=== PATIENT | female | born 1935 | race Caucasian/White ===

== ENCOUNTER 2017-07-30 11:50 | Inpatient (IN) ==
[2017-07-25 16:46] LABS: Appearance,Urine CLEAR; Bacteria,Urine 0 /hpf (0); Bilirubin,Urine NEG (NEG); Color,Urine YELLOW; Glucose,Urine (UA) NEGATIVE (NEG); Leukocyte Esterase,Urine 500 /uL (NEG); Mucus,Urine FEW /hpf (0); Protein,Urine NEG (NEG); Specific Gravity,Urine 1.013 (1.000-1.035); Urine Blood NEG mg/dL (<0.03); Urine Hyaline Cast 1 /lpf (0-2); Urine RBC < 1 /hpf (0-1); Urine Squamous Epithelial Cell < 1 /hpf (0-4); Urine Transitional Epi Cells < 1 /hpf (0-2); Urine WBC 41 /hpf (0-4); Urobilinogen,Urine NEG (NEG)
[2017-07-25 17:30] LABS: Basophils # (Auto) 0.1 K/mcL (0.0-0.3); Eosinophils # (Auto) 0.8 K/mcL (0.0-0.7); Eosinophils % (Auto) 8.3 % (0.0-7.0); Granulocytes % (Auto) 56.3 % (38.0-78.0); Lymphocytes # (Auto) 2.3 K/mcL (1.5-4.8); Lymphocytes % (Auto) 22.8 % (15.5-49.0); Mean Cell Volume 84.6 fL (80.0-100.0); Mean Corpuscular HGB Conc 33.9 g/dL (31.0-36.0); Mean Corpuscular Hemoglobin 28.7 pg (26.0-34.0); Monocytes # (Auto) 1.2 K/mcL (0.1-0.9); Monocytes % (Auto) 11.6 % (1.0-12.0); Platelet Count 520 K/mcL (140-440); RBC 4.26 M/mcL (4.00-5.20)
[2017-07-25 17:48] LABS: Blood Urea Nitrogen 29 mg/dl (8-23)
[~2017-07-30 11:50] MED LIST: PREGABALIN 75 MG CAPSULE PO SCH; ceFAZolin 1 GM VIAL IV SCH; oxyCODONE 10 MG TAB.ER.12H PO SCH
[2017-07-30] MEDS ORDERED: SUCCINYLCHOLINE 20 MG/ML ML IV ONE (15:10)
[2017-07-30] MEDS ORDERED: PHENYLEPHRINE 10 MG/ML VIAL IV ONE (15:10)
[2017-07-30] MEDS ORDERED: TRANEXAMIC ACID 1,000 MG/10 ML VIAL IV ONE ×2 (15:10→16:39)
[2017-07-30] MEDS ORDERED: ONDANSETRON 4 MG/2 ML VIAL IV ONE (15:10)
[2017-07-30] MEDS ORDERED: LIDOCAINE HCL/PF 100 MG/5 ML SYRINGE IV ONE (15:10)
[2017-07-30] MEDS ORDERED: PROPOFOL 200 MG/20 ML VIAL IV ONE (15:10)
[2017-07-30] MEDS ORDERED: HYDROmorphone 2 MG/ML VIAL IV ONE (15:10)
[2017-07-30] MEDS ORDERED: fentaNYL 250 MCG/5 ML VIAL IV ONE (15:10)
[2017-07-30] MEDS ORDERED: DEXAMETHASONE 10 MG/ML VIAL IV ONE (15:10)
[2017-07-30] MEDS ORDERED: ePHEDrine 50 MG/ML AMPUL IV ONE (15:10)
[2017-07-30] MEDS ORDERED: MIDAZOLAM 2 MG/2 ML VIAL IV ONE (15:10)
[2017-07-30] MEDS ORDERED: LACTATED RINGERS 1,000 ML IV SCH (15:45)
[2017-07-30] MEDS ORDERED: METHOCARBAMOL 1,000 MG/10 ML VIAL IV PRN (15:45)
[2017-07-30] MEDS ORDERED: IPRATROPIUM/ALBUTEROL 3 ML AMPUL.NEB NEB PRN (15:45)
[2017-07-30] MEDS ORDERED: NALOXONE HCL 0.4 MG/ML VIAL IV PRN (15:45)
[2017-07-30] MEDS ORDERED: fentaNYL 100 MCG/2 ML VIAL IV PRN (15:45)
[2017-07-30] MEDS ORDERED: FLUMAZENIL 0.1 MG/ML ML IV PRN (15:45)
[2017-07-30] MEDS ORDERED: ACETAMINOPHEN 1,000 MG/100 ML BOTTLE IV ONE (15:45)
[2017-07-30] MEDS ORDERED: LACTATED RINGERS 250 ML IV PRN (15:45)
[2017-07-30] MEDS ORDERED: BENZOCAINE/MENTHOL 1 LOZENGE PO PRN ×2 (15:45→16:39)
[2017-07-30] MEDS ORDERED: ONDANSETRON 4 MG/2 ML VIAL IV PRN ×2 (15:45→16:39)
--- NOTE | 2017-07-30 16:36 | Brief Operative Note ---
Date of procedure: 07/30/17 Pre-op diagnosis: R shoulder massive rotator cuff tear with instability Post-op diagnosis: same Procedure: Right reverse total shoulder arthroplasty Grafts/Implants: Yes (Juan Perform 36 glenosphere, 6 long stem, std poly) Anesthesia: GETA Findings: absent RTC Complications: none Surgeon: Gigi Kirk Pin Ticket Machine Operator: Hugo Jaimes Estimated blood loss (cc): 100 Specimens Removed/Pathology: none sent Condition: stable Disposition: PACU
[2017-07-30] MEDS ORDERED: MAGNESIUM HYDROXIDE 30 ML ORAL.SUSP PO PRN (16:39)
[2017-07-30] MEDS ORDERED: BISACODYL 10 MG SUPP.RECT PR PRN (16:39)
[2017-07-30] MEDS ORDERED: FLEETS ADULT ENEMA PR PRN (16:39)
[2017-07-30] MEDS ORDERED: POLYETHYLENE GLYCOL 3350 17 GM PACKET PO PRN (16:39)
[2017-07-30] MEDS ORDERED: KETOROLAC 15 MG/ML VIAL IV PRN (16:39)
[2017-07-30] MEDS ORDERED: IBUPROFEN 200 MG TABLET PO PRN (16:39)
[2017-07-30] MEDS ORDERED: ACETAMINOPHEN 325 MG TABLET PO PRN (16:39)
[2017-07-30] MEDS ORDERED: FLUTICASONE PROPIONATE SPRAY.NAS NS PRN (16:43)
[2017-07-30] MEDS ORDERED: CYCLOBENZAPRINE 10 MG TABLET PO PRN (16:43)
[2017-07-30] MEDS ORDERED: HALOBETASOL PROPIONATE TOPICAL PRN (16:43)
[2017-07-30] MEDS ORDERED: hydrOXYzine 25 MG TABLET PO PRN (16:43)
[2017-07-30] MEDS ORDERED: BUPIVACAINE W/EPI 0.5% 50 ML VIAL IJ ONE (16:56)
--- NOTE | 2017-07-30 17:21 | XRay Report ---
CLINICAL INFORMATION: Reason for Exam:Post-OP Total Shoulder COMPARISON: None. FINDINGS: Total shoulder prostheses is anatomically aligned no osseous abnormality. Soft tissue swelling and gas seen as expected IMPRESSION: Negative Interpreted and Authenticated by: Cipriano López 07/30/17
[2017-07-30] MEDS: 0.9 % SODIUM CHLORIDE 1,000 ML IV SCH (18:25)
[2017-07-30] MEDS: DOCUSATE SODIUM 100 MG CAPSULE PO SCH (20:04)
[2017-07-30] MEDS: CALCIUM (OYSTER SHELL) 500 MG TABLET PO SCH (20:04)
[2017-07-30] MEDS ORDERED: SENNOSIDES 1 TABLET PO SCH (21:00)
[2017-07-30] MEDS: 0.9 % SODIUM CHLORIDE 10 ML SYRINGE IV SCH (22:54)
[2017-07-30] MEDS: ceFAZolin 1 GM VIAL IV SCH (22:54)
[2017-07-31] MEDS: oxyCODONE/APAP 5/325MG TABLET PO PRN ×3 (00:01→11:14)
[2017-07-31] MEDS: 0.9 % SODIUM CHLORIDE 10 ML SYRINGE IV SCH (04:52)
[2017-07-31] MEDS: ceFAZolin 1 GM VIAL IV SCH (06:54)
--- NOTE | 2017-07-31 07:46 | Discharge Summary ---
Providers - Providers Patient information: Note initiated : 07/31/17 at 7:42 am Service Date, if different from initiated Date: [] Patient: Itzel Rabago 82 y/o F admitted on 07/30/17 for Right Reverse Total Shoulder Arthroplasty. Chief Complaint: [] Discharge date: 07/31/17 Hospitalization Hospital course: Pt was admitted for R reverse total shoulder arthroplasty. She suffered from R shoulder rotator cuff arthropathy that failded conservative management. She underwent the procedure on the day of admission and spent one night on the floor prior to discharge. She was given appropriate pain meds and will f/u in 10 -14 days. Discharge diagnosis: R shoulder rotator cuff arthropathy Exam - Exam Clean and dry: Yes Weight bearing status: as tolerated Ortho Discharge - TSA - Patient Instructions Diet: Regular Diet Activity: activity as tolerated Total Shoulder Protocol: Leave immobilizer in place except for bathing and ROM. Abduction pillow. Continue to wear sling until seen by physician. Codman Pendulum : These exercises use momentum produced by your body to move your shoulder joint. Bend your knees and shift your weight to your front leg, then back, allowing your arm to swing in the same directions. Using the same technique, alternately shift your weight between your right and left legs, allowing your arm to swing from side to side. These exercises are also performed in counterclockwise and clockwise circular motions. Typically these exercises are performed several times per day, for a set number repetitions or minutes, such as 20 times in a row or 5 minutes at a time. Dressing Care: May shower in 2 days - Follow Up Plan Disposition: Home, Self-Care Prognosis: Good Rehab Potential: Good Overall status at discharge: patient is progressing back to baseline - Orders For Discharge Prescriptions: HYDROcodone/APAP 10/325MG [[place] 10-325Mg] 1 tab PO Q6H PRN #60 tab PRN Reason: Pain Pending Studies Resuscitation Status Full Code Diet Regular Diet Start SatJul 30 Breakfast Calcium Carbonate/Glycine (Oscal) 500 mg PO BID [facility] Last Admin: 07/30/17 20:04 Dose: 500 mg Docusate Sodium (Colace) 100 mg PO BID [facility] Last Admin: 07/30/17 20:04 Dose: 100 mg Sodium Chloride (Sodium Chloride 0.9%) 1,000 mls @ 75 mls/hr IV .[id number] [facility] Last Admin: 07/30/17 18:25 Dose: 75 mls/hr Ketorolac Tromethamine (Toradol) 15 mg IV Q6HP PRN PRN Reason: Pain Stop: 08/01/17 16:41 Last Admin: 07/30/17 18:42 Dose: 15 mg Oxycodone/Acetaminophen (Percocet 5-325 Mg) 0 tab PO Q4HP PRN PRN Reason: PAIN LEVEL 3-6 Last Admin: 07/31/17 00:01 Dose: 1 tab Senna (Senokot) 2 tab PO HS [facility] Last Admin: 07/30/17 20:04 Dose: 2 tab Sodium Chloride (Saline Flush) 10 ml IV Q8 [facility] Last Admin: 07/31/17 04:52 Dose: Not Given Admin: 07/30/17 22:54 Dose: Not Given Shift Summary 07/31/17 04:09 Shift Summary by Jose E Arango VSS on 2L O2 via NC. A&Ox4. Shoulder immobilizer in place. Dressing to right shoulder CDI. Up to BSC x2 this shift. Last void was 650mL, PVR 0mL. Very unsteady on feet @ baseline. States she walks w/walker at home, fellow sisters stated she walks w/2 walking sticks but is very unsteady and requires assistance. Up to BSC w/1 person assist and cane. Initially pt was dizzy and nauseated upon getting oob, however the second time up to BSC she appeared to tolerate transferring better. N subsided after returning to bed. BLE pitting edema is WNL for patient. SCDs in place through night. IV to left FA running NS @ 75mL/hr, plan to SL when bag is empty. Uses IS up to 750. Pt has received Toradol x1 @ 1840 and 1 tab Percocet @ midnight. After percocet admin pt stated she had no pain. Very pleasant and cooperative w/cares. Initialized on 07/31/17 04:09 - END OF NOTE
--- NOTE | 2017-07-31 08:23 | Operative Note ---
DATE OF OPERATION: 07/30/2017 PREOPERATIVE DIAGNOSIS: Right shoulder massive irreparable rotator cuff tear with recurrent instability. POSTOPERATIVE DIAGNOSIS: Right shoulder massive irreparable rotator cuff tear with recurrent instability. PROCEDURE PERFORMED: Right reverse total shoulder arthroplasty using the Tornier Aequalis Perform implant, size 36 standard glenosphere with a size 6 long stem and a standard baseplate and polyethylene insert. SURGEON: Gigi Kirk M.D. LEATHER SPRAYER: Jesus Jaimes PA-C. ANESTHESIA: General. DRAINS: None. SPECIMENS: None. COMPLICATIONS: None. BLOOD LOSS: 100 mL. POSTOPERATIVE CONDITION: Stable. INDICATIONS FOR SURGERY: This is an 82-year-old female who had a longstanding shoulder weakness. However, she spontaneously dislocated two times in the last several months. FINDINGS AT SURGERY: She had complete absence of the rotator cuff. Post implantation showed satisfactory range of motion and stability. PROCEDURE IN DETAIL: Patient was seen in preoperative holding and correct operative site marked. She signed informed consent which included discussion of risks and benefits of surgery. Risks including, but not limited to, bleeding, possibly requiring transfusion; infection, possibly requiring implant removal and prolonged IV antibiotics; injury to nerves, blood vessels other surrounding structures; anesthetic risks; incomplete or no resolution of symptoms; dislocation; fracture; possibility of needing further revision surgery. She understood these and wished to proceed. Patient was taken to the operating room. General anesthesia induced. She was carefully positioned in the beach chair position and pressure points carefully padded. Right shoulder and upper extremity were then carefully prepped and draped in normal sterile fashion, and a time-out was performed verifying patient name, operative site, and plan. Ioban was used to cover all skin surfaces. A standard deltopectoral incision was made with a scalpel through skin and subcutaneous tissue. Hemostasis was obtained with Bovie cautery. Careful blunt dissection was taken medial to the cephalic vein and then blunt finger dissection used to develop the subdeltoid space. Irrisept was irrigated. There was a pseudocapsule around the humeral head that when punctured released a large amount of joint fluid. However, there was complete absence of the rotator cuff. The humeral head was dislocated out and we looked at her retroversion. She was extremely retroverted. However, I chose to go ahead and do an anatomic cut, so we went ahead and cut the humeral head anatomically. We then started broaching down the canal until a size 6. We then used the main broaches then to go up to a size 6. We then subluxed the humerus posteriorly and exposed the glenoid. Labrum remains were excised circumferentially and capsule released circumferentially. We then marked the center of the glenoid and then using the guide from Juan with the 10 degree tilt up drilled our guide pin. We then reamed, reaming into cancellous bone inferiorly and just contacting bone superiorly. We then drilled our central peg over top and then drilled our central screw hole. We depth gauged this I believe a 35. We then chose a 25 standard baseplate. After irrigating Irrisept and waiting minute and then pulse lavage, we then tightened the baseplate down. We then drilled and placed locking screws superior and inferiorly, and posteriorly the screw was too short, so we left this empty. Anteriorly we got a fairly good screw. We then placed a standard 36 glenosphere and a trial and then redislocated the head. We placed a standard baseplate with a standard poly trial. The shoulder reduced with good tension. We checked our range of motion. It did not appear unstable or to impinge, so we went ahead and dislocated. We then re-exposed the glenoid and removed the glenosphere trial. The definitive implant was opened. We irrigated with Irrisept again, after a minute pulse lavaged, and then we impacted the glenosphere and then tightened the screw. We then re-exposed the humerus. We removed the trial. We irrigated the humeral canal with Irrisept, after a minute pulse lavaged, and then the stem was impacted along with the baseplate and polyethylene, all in one construct. Shoulder was reduced again with excellent tension. Range of motion verified and then we irrigated again with Irrisept, after a minute pulse lavaged with saline, and then went ahead and closed our deltopectoral interval with a running #1 Vicryl, 2-0 Monocryl was used for subcutaneous and ronak for skin. Xeroform sterile dressings were applied. Arm was placed in an abductor immobilizer and patient was awakened, extubated, and transferred to recovery in stable condition. [email or web address] Job ID: [id number] Doc ID: [id number] Gigi Kirk MD
[2017-07-31] MEDS: 0.9 % SODIUM CHLORIDE 1,000 ML IV SCH (08:24)
[2017-07-31] MEDS: DOCUSATE SODIUM 100 MG CAPSULE PO SCH (08:58)
[2017-07-31] MEDS: CALCIUM (OYSTER SHELL) 500 MG TABLET PO SCH (08:58)
[2017-07-31] MEDS ORDERED: CYANOCOBALAMIN 1,000 MCG/ML VIAL IM SCH (09:00)
[2017-07-31] MEDS ORDERED: HYDROCHLOROTHIAZIDE 12.5 MG CAPSULE PO SCH (09:00)
[2017-07-31] MEDS ORDERED: LOSARTAN 50 MG TABLET PO SCH (09:00)
[2017-07-31] MEDS ORDERED: FUROSEMIDE 40 MG TABLET PO SCH (09:00)
[2017-07-31] MEDS ORDERED: LACTOBACILLUS 1 CAPSULE PO SCH (09:00)
[2017-07-31] MEDS ORDERED: MAGNESIUM OXIDE 400 MG TABLET PO SCH (09:00)
== END 2017-07-31 11:15 | disposition home or self-care (01) | DRG 483 ==
LOC: MEDSUR 11:50
PROVIDERS: ADMIT Orthopaedic Surgery; ATTEND Orthopaedic Surgery

== ENCOUNTER 2019-03-25 07:30 | Inpatient (IN) ==
[2019-03-19 13:53] LABS: Appearance,Urine CLEAR; Bacteria,Urine 0 /hpf (0); Bilirubin,Urine NEG (NEG); Color,Urine YELLOW; Culture Indicated,Urine NO; Glucose,Urine (UA) NEGATIVE (NEG); Ketones,Urine NEG (NEG); Leukocyte Esterase,Urine 25 /uL (NEG); Nitrate,Urine NEG (NEG); Protein,Urine NEG (NEG); Specific Gravity,Urine 1.012 (1.000-1.035); Urine Blood NEG mg/dL (<0.03); Urine RBC < 1 /hpf (0-1); Urine Squamous Epithelial Cell < 1 /hpf (0-4); Urine WBC 2 /hpf (0-4); Urobilinogen,Urine NEG (NEG)
[2019-03-19 14:10] LABS: Estimated Average Glucose(eAG) 117 mg/dL; Hemoglobin A1C 5.7 % HGB (4.0-6.0)
[2019-03-19 14:18] LABS: Blood Urea Nitrogen 32 mg/dl (8-23); Calcium 9.2 mg/dl (8.6-10.4); Carbon Dioxide 28 mmol/L (22-30); Chloride 94 mmol/L (96-108); Glomerular Filtration Rate 51; Glucose 96 mg/dL (70-105)
[2019-03-19 15:21] LABS: Basophils # (Auto) 0.1 K/mcL (0.0-0.3); Basophils % (Auto) 0.5 % (0.0-2.0); Eosinophils # (Auto) 0.2 K/mcL (0.0-0.7); Eosinophils % (Auto) 2.5 % (0.0-7.0); Granulocytes % (Auto) 62.1 % (38.0-78.0); Hematocrit 36.2 % (36.0-48.0); Lymphocytes # (Auto) 2.5 K/mcL (1.5-4.8); Lymphocytes % (Auto) 25.5 % (15.5-49.0); Mean Cell Volume 82.6 fL (80.0-100.0); Mean Corpuscular HGB Conc 33.2 g/dL (31.0-36.0); Mean Platelet Volume 7.6 fL (7.4-10.4); Monocytes # (Auto) 0.9 K/mcL (0.1-0.9); Monocytes % (Auto) 9.4 % (1.0-12.0); Platelet Count 551 K/mcL (140-440); RBC 4.38 M/mcL (4.00-5.20); Red Cell Distribution Width 21.5 % (11.5-14.5); WBC 9.9 K/mcL (4.5-11.0)
[~2019-03-25 07:30] MED LIST changes: +IPRATROPIUM/ALBUTEROL 3 ML AMPUL.NEB NEB PRN; +SCOPOLAMINE 1 PATCH PATCH TOPICAL PRN; -ceFAZolin 1 GM VIAL IV SCH; +ceFAZolin 2 GM in DEXTROSE 5% IN WATER 50 ML IV SCH
[2019-03-25] MEDS ORDERED: GLYCOPYRROLATE 0.2 MG/ML VIAL IV ONE (11:46)
[2019-03-25] MEDS ORDERED: MIDAZOLAM 2 MG/2 ML VIAL IV ONE (11:46)
[2019-03-25] MEDS ORDERED: ONDANSETRON 4 MG/2 ML VIAL IV ONE (11:46)
[2019-03-25] MEDS ORDERED: fentaNYL 100 MCG/2 ML VIAL IV ONE (11:46)
[2019-03-25] MEDS ORDERED: SUGAMMADEX SODIUM 200 MG/2 ML VIAL IV ONE (11:46)
[2019-03-25] MEDS ORDERED: ePHEDrine 50 MG/ML AMPUL IV ONE (11:46)
[2019-03-25] MEDS ORDERED: ROCURONIUM 10 MG/ML ML IV ONE (11:46)
[2019-03-25] MEDS ORDERED: PHENYLEPHRINE 10 MG/ML VIAL IV ONE (11:46)
[2019-03-25] MEDS ORDERED: KETAMINE 100 MG/ML ML IV ONE (11:46)
[2019-03-25] MEDS ORDERED: PROPOFOL 200 MG/20 ML VIAL IV ONE (11:46)
[2019-03-25] MEDS ORDERED: DEXAMETHASONE 10 MG/ML VIAL IV ONE (11:46)
[2019-03-25] MEDS ORDERED: LIDOCAINE HCL/PF 100 MG/5 ML SYRINGE IV ONE (11:46)
[2019-03-25] MEDS ORDERED: BUPIVACAINE W/EPI 0.5% 50 ML VIAL IJ ONE (12:42)
[2019-03-25] MEDS ORDERED: LACTATED RINGERS 250 ML IV PRN (13:10)
[2019-03-25] MEDS ORDERED: FLUMAZENIL 0.1 MG/ML ML IV PRN (13:10)
[2019-03-25] MEDS ORDERED: NALOXONE HCL 0.4 MG/ML VIAL IV PRN (13:10)
[2019-03-25] MEDS ORDERED: diphenhydrAMINE 50 MG/ML VIAL IV PRN (13:10)
[2019-03-25] MEDS ORDERED: ACETAMINOPHEN 1,000 MG/100 ML BOTTLE IV ONE (13:10)
[2019-03-25] MEDS ORDERED: IPRATROPIUM/ALBUTEROL 3 ML AMPUL.NEB NEB PRN (13:10)
[2019-03-25] MEDS ORDERED: ONDANSETRON 4 MG/2 ML VIAL IV PRN ×2 (13:10→13:21)
[2019-03-25] MEDS ORDERED: PROMETHAZINE 25 MG/ML VIAL IV PRN (13:10)
[2019-03-25] MEDS ORDERED: BENZOCAINE/MENTHOL 1 LOZENGE PO PRN ×2 (13:10→13:21)
[2019-03-25] MEDS ORDERED: MEPERIDINE 25 MG/ML SYRINGE IV PRN (13:10)
[2019-03-25] MEDS ORDERED: LACTATED RINGERS 1,000 ML IV SCH (13:15)
--- NOTE | 2019-03-25 13:20 | Brief Operative Note ---
Date of procedure: 03/25/19 Pre-op diagnosis: Left shoulder severe RTC tear arthropathy Post-op diagnosis: same Procedure: 1)Left reverse total shoulder arthroplasty 2)Biceps tenodesis Grafts/Implants: Yes (Tornier Aequalis Ascend flex 5 long stem, 36 +2 inferior offset glenosphere) Anesthesia: GETA Findings: severe osteoporosis, absent cuff Complications: none Surgeon: Gigi Kirk Railroad Car Painter: Hugo Jaimes Estimated blood loss (cc): 150 Specimens Removed/Pathology: none sent Condition: stable Disposition: PACU
[2019-03-25] MEDS ORDERED: MAGNESIUM HYDROXIDE 30 ML ORAL.SUSP PO PRN (13:21)
[2019-03-25] MEDS ORDERED: BISACODYL 10 MG SUPP.RECT PR PRN (13:21)
[2019-03-25] MEDS ORDERED: FLEETS ADULT ENEMA PR PRN (13:21)
[2019-03-25] MEDS ORDERED: TRANEXAMIC ACID 1,000 MG/10 ML VIAL IV ONE (13:21)
[2019-03-25] MEDS ORDERED: KETOROLAC 15 MG/ML VIAL IV PRN (13:21)
[2019-03-25] MEDS ORDERED: POLYETHYLENE GLYCOL 3350 17 GM PACKET PO PRN (13:21)
[2019-03-25] MEDS ORDERED: FLUTICASONE PROPIONATE SPRAY.NAS NS PRN (13:26)
[2019-03-25] MEDS ORDERED: HALOBETASOL PROPIONATE TOPICAL PRN (13:26)
[2019-03-25] MEDS ORDERED: CYCLOBENZAPRINE 10 MG TABLET PO PRN (13:26)
[2019-03-25] MEDS ORDERED: HYDROmorphone 2 MG/ML VIAL IV PRN (13:28)
[2019-03-25] MEDS: fentaNYL 100 MCG/2 ML VIAL IV PRN ×2 (14:02→14:10)
[2019-03-25] MEDS ORDERED: METHOCARBAMOL 1,000 MG/10 ML VIAL IV ONE (14:12)
--- NOTE | 2019-03-25 14:12 | XRay Report ---
CLINICAL INFORMATION: Postsurgical follow-up TECHNIQUE: AP and axillary views of the left shoulder COMPARISON: None. FINDINGS: Status post left reverse shoulder arthroplasty. Alignment is anatomic. There are skin ronak overlying the left shoulder. IMPRESSION: Left reverse shoulder arthroplasty Interpreted and Authenticated by: Cipriano Eric 03/25/19
[2019-03-25] MEDS: 0.9 % SODIUM CHLORIDE 10 ML SYRINGE IV SCH ×2 (14:29→22:21)
--- NOTE | 2019-03-25 14:40 | Operative Note ---
DATE OF OPERATION: 03/25/2019 PREOPERATIVE DIAGNOSIS: Left shoulder severe rotator cuff tear arthropathy. POSTOPERATIVE DIAGNOSIS: Left shoulder severe rotator cuff tear arthropathy plus severe osteoporosis. PROCEDURE PERFORMED: 1. Left reverse total shoulder arthroplasty placing a Tornier Aequalis Ascend Flex size 5 long humeral stem, a standard thickness baseplate with a +9 mm insert on a 25 mm standard baseplate and a 36 eccentric 2 mm glenosphere. 2. Biceps tenodesis. SURGEON: Gigi Kirk MD CORRECTIONAL MANAGER: Jesus Jaimes PA-C. This provider's expertise and technical skill were required throughout the case. The PA assisted with preoperative coordination, intraoperative retraction, wound closure, dressing and splint application, as well as postoperative documentation and care coordination. ANESTHESIA: General. DRAINS: None. SPECIMENS: Biceps stump and humeral head which were discarded. BLOOD LOSS: 150 mL COMPLICATIONS: Difficulty with severe osteoporosis. POSTOPERATIVE CONDITION: Stable. INDICATIONS FOR SURGERY: This is an 83-year-old female who has had longstanding shoulder pain and weakness. Radiographs showed severe arthritis with rotator cuff tear arthropathy. She did have history of previous reverse total shoulder arthroplasty on the right with which she was happy. FINDINGS AT SURGERY: She had absent rotator cuff other than subscapularis. There was a large joint effusion and severe osteoporosis with fragmentation of the glenoid during preparation. PROCEDURE IN DETAIL: The patient had been seen preoperatively. Informed consent had been obtained after discussion of risks, benefits of surgery. Risks including, but not limited to, bleeding; infection; injury to nerves, blood vessels or other surrounding structures, anesthetic risks; incomplete or no resolution of symptoms; dislocation; fracture, and possibility of needing further surgery. She understood and wished to proceed. Correct operative site was marked and the patient was taken to the operating room. General anesthesia induced. She was carefully positioned in the beach chair position and pressure points carefully padded. Ioban was placed over all skin surfaces and then a timeout was performed verifying patient name, operative site, and plan. Standard deltopectoral incision was made with a scalpel through skin and subcutaneous tissue and then hemostasis was obtained with Bovie cautery. Careful blunt dissection was taken to the cephalic vein. This was dissected lateral to the deltoid. Blunt finger dissection was used to develop the subdeltoid space and Rivera deltoid retractor placed. At this point, we visualized a very large joint effusion. We then identified the lateral edge of the conjoint tendon and placed a blue handle retractor underneath. Upon puncturing the pseudocapsule, a large effusion was suctioned out. We then identified the biceps tendon and unroofed this along its course. It was still attached to the glenoid, so we amputated this. I then used a curved osteotome to perform a lesser tuberosity osteotomy to detach the subscapularis and at this point we noted severe osteoporosis and a cavernous hole within the proximal humerus. We used a Tay to help lever out the head and then released capsule around the medial neck. A cut guide was placed and then oscillating saw used to make our head cut. We then used the handheld awl to identify canal trajectory and then the sounders to increase and find the canal size. It looked like a 5 would be best. We went ahead and broached up to a 5 and then placed a cut protector. We then exposed the glenoid placing a Fukuda retractor on the posterior glenoid and subluxing the humerus posteriorly a 2 toothed Tay was placed anterior on the glenoid neck. However, upon retracting with this, the anterior rim of the glenoid fractured off and was extremely thin. We went ahead and removed those fragments and moved our Tay farther medial. We then started trying to release capsule and at this point the posterior glenoid fractured with leverage on the Fukuda. This left us with a tall narrow glenoid bone stock. Once we had adequate exposure I used the guide, we placed this inferiorly and drilled; however, there was significant retroversion of the glenoid. I could palpate with my finger the guide pin extending anteriorly so we angled this even more posterior increasing the glenoid anteversion. However, when I went to start reaming this, the posterior inferior quadrant of the glenoid fractured off. So at this point, the only bone stock remaining was superior so we moved our guide pin up superior and I angled even a little more anteversion to try and get into better bone and then started reaming. I was able to get bony contact around about 3/4 of the glenoid. The posterior portion I could not get bone contact without severely reaming away the glenoid. We then drilled the central peg and the central peg reamer exited out the anterior glenoid neck. Because her bone was so thin we went ahead then and chose a 25 baseplate with a post-treasury specialist as there would be no screw purchase through this hole. Prior to impaction we irrigated with IrriSept, after a minute pulse lavaged with saline and then gently impacted the baseplate until it was contacting bone. We then used the drill inferiorly and angled as far posterior as the whole sleeve would let me and I was able to get reasonably good bone fixation down the spine of the scapula. This measured at 22 mm before accessing so we placed a 22 mm screw. I then went superiorly and drilled. We got just under 14 mm, but did get some cortical purchase with this. This gave us reasonable fixation, we felt, to hold the glenosphere. Anterior and posterior were left empty due to absent bone underneath them. Then, due to the fact that I had to proximally move the glenoid sphere I chose a 2 mm inferior offset, 36 glenosphere and this was gently placed onto the baseplate and then the screw was advanced and tightened until it locked. We then re-exposed the proximal humerus. I placed a standard baseplate with a +6 trial. This reduced fairly easily, so I retrialed then with a 9. This had better tension. I did not want to over-tension due to her poor bone quality, so we went ahead with the 5 stem, a standard baseplate with a +9 insert. This was assembled on the back table while we filled the joint with IrriSept, after a minute pulse lavaged with saline copiously and then the stem was gently impacted until it seated our neck cut. Anteriorly there was absent bone where the osteotomy was. We did another IrriSept irrigation, after a minute more pulse lavage and then I placed two drill holes lateral to the bicipital groove and then a #2 FiberWire and a cutter was passed through the hole underneath the bicipital groove cortical bone around the lesser tuberosity of the osteotomized fragment back around to the second hole inferiorly, repeated again with the second pass creating a [id number] stitch over the top of the osteotomized fragment. We tied this and cut. This reapproximated the subscapularis well. We then took our traction stitch, passed this through the biceps and tied this for our tenodesis. The proximal stump was amputated. We did another IrriSept irrigation, after a minute pulse lavaged and then a running #1 Vicryl stitch was used to close the deltopectoral interval. Final IrriSept irrigation was done, after a minute final pulse lavage, and then 2-0 Monocryl was used for subcutaneous and ronak for skin. Xeroform sterile dressings were applied and the patient was then awakened, extubated, and transferred to recovery in satisfactory condition. [email or web address] Job ID: [id number] Doc ID: [id number] Gigi Kirk MD
[2019-03-25] MEDS: 0.9 % SODIUM CHLORIDE 1,000 ML IV SCH (14:58)
[2019-03-25] MEDS: ceFAZolin 1 GM VIAL IV SCH (18:51)
[2019-03-25] MEDS ORDERED: MAGNESIUM OXIDE 400 MG TABLET PO SCH (21:00)
[2019-03-25] MEDS ORDERED: amLODIPine 5 MG TABLET PO SCH (21:00)
[2019-03-25] MEDS ORDERED: SENNOSIDES 1 TABLET PO SCH (21:00)
[2019-03-25] MEDS ORDERED: LACTOBACILLUS 1 CAPSULE PO SCH (21:00)
[2019-03-25] MEDS: DOCUSATE SODIUM 100 MG CAPSULE PO SCH (22:20)
[2019-03-25] MEDS: oxyCODONE/APAP 5/325MG TABLET PO PRN (22:20)
[2019-03-25] MEDS: CALCIUM (OYSTER SHELL) 500 MG TABLET PO SCH (22:21)
[2019-03-26] MEDS: ceFAZolin 1 GM VIAL IV SCH (02:40)
[2019-03-26] MEDS: 0.9 % SODIUM CHLORIDE 1,000 ML IV SCH (03:01)
[2019-03-26] MEDS: 0.9 % SODIUM CHLORIDE 10 ML SYRINGE IV SCH (05:17)
--- NOTE | 2019-03-26 07:42 | Discharge Summary ---
Providers - Providers Patient information: Note initiated : 03/26/19 at 7:38 am Service Date, if different from initiated Date: [] Patient: Itzel Rabago 83 y/o F admitted on 03/25/19 for Left Reverse Total Shoulder Arthroplasty. Chief Complaint: [] Discharge date: 03/26/19 Hospitalization Hospital Course: Pt was admitted for a L reverse TSA. Pt underwent thte procedure on the day of admission. Pt was then transferred to the floor for IV pain meds and IV abx. Pt was discharged to home. Will wait 6 weeks prior to starting PT. Will f/u in 2 weeks. Discharge diagnosis: L shoulder rotator cuff arthropathy and OA Exam - Exam Clean and dry: Yes Weight bearing status: as tolerated Ortho Discharge - TSA - Patient Instructions Diet: Regular Diet Activity: activity as tolerated Total Shoulder Protocol: Leave immobilizer in place except for bathing and ROM. Abduction pillow. Continue to wear sling until seen by physician. Codman Pendulum : These exercises use momentum produced by your body to move your shoulder joint. Bend your knees and shift your weight to your front leg, then back, allowing your arm to swing in the same directions. Using the same technique, alternately shift your weight between your right and left legs, allowing your arm to swing from side to side. These exercises are also performed in counterclockwise and clockwise circular motions. Typically these exercises are performed several times per day, for a set number repetitions or minutes, such as 20 times in a row or 5 minutes at a time. Dressing Care: May shower in 2 days - Follow Up Plan Disposition: Home, Self-Care Prognosis: Good Rehab Potential: Good Overall status at discharge: patient is back to baseline - Orders For Discharge Prescriptions: oxyCODONE/APAP [Percocet 5-325 mg] 1 - 2 tab PO Q4HP PRN #75 tab PRN Reason: Per Pain Protocol Prescription Printed Pending Studies Resuscitation Status Full Code Diet Consistent Carbohydrate Diet Start SatMar 25 1323 Amlodipine Besylate (Norvasc) 5 mg PO [facility] Last Admin: 03/25/19 22:20 Dose: 5 mg Documented by: CHAPITO Calcium Carbonate/Glycine (Oscal) 500 mg PO BID [facility] Last Admin: 03/25/19 22:21 Dose: 500 mg Documented by: CHAPITO Docusate Sodium (Colace) 100 mg PO BID [facility] Last Admin: 03/25/19 22:20 Dose: 100 mg Documented by: CHAPITO Sodium Chloride (Sodium Chloride 0.9%) 1,000 mls @ 75 mls/hr IV .[id number] [facility] Last Admin: 03/26/19 03:01 Dose: Not Given Documented by: Admin: 03/25/19 14:58 Dose: 75 mls/hr Documented by: MAIN Lactobacillus Rhamnosus (Culturelle) 1 cap PO [facility] Last Admin: 03/25/19 22:21 Dose: 1 cap Documented by: CHAPITO Magnesium Oxide (Magnesium Oxide) 400 mg PO [facility] Last Admin: 03/25/19 22:21 Dose: 400 mg Documented by: CHAPITO Oxycodone/Acetaminophen (Percocet 5-325 Mg) 0 tab PO Q4HP PRN; Protocol PRN Reason: Per Pain Protocol Last Admin: 03/25/19 22:20 Dose: 1 tab Documented by: CHAPITO Senna (Senokot) 2 tab PO [facility] Last Admin: 03/25/19 22:20 Dose: 2 tab Documented by: CHAPITO Sodium Chloride (Saline Flush) 10 ml IV Q8 [facility] Last Admin: 03/26/19 05:17 Dose: 10 ml Documented by: Admin: 03/25/19 22:21 Dose: 10 ml Documented by: Admin: 03/25/19 14:29 Dose: Not Given Documented by: MAIN Shift Summary 03/26/19 04:30 Shift Summary by Ashlyn Montaño The patient is alert and oriented times four, able to make her needs known and was medicated for pain once with one Percocet, she has denied nausea and is tolerating a regular diet well. She has a 18 gauge SL to her left forearm and is taking adequate PO, she was up to attempt to void multiple times via bedside commode and restroom and only voided 25-75 ml at a time. Bladder scan indicated greater than 500 and a straight cath was done at 0300 for 600 with 100 ml left in her bladder. Dressing is CDI to her left arm, immobilizer in place and CMS within normal limits. She has a very unsteady gait/imbalance with ambulation and requires 1 assist with a single prong cane and gait belt. She verbalized she uses a FWW and or wheelchair at home, bilateral hearing aides at bedside and is very hard of hearing. Room air, VSS. Initialized on 03/26/19 04:30 - END OF NOTE
[2019-03-26] MEDS ORDERED: CYANOCOBALAMIN 1,000 MCG/ML VIAL IM SCH (09:00)
[2019-03-26] MEDS ORDERED: FUROSEMIDE 40 MG TABLET PO SCH (09:00)
[2019-03-26] MEDS: oxyCODONE/APAP 5/325MG TABLET PO PRN ×2 (09:24→12:00)
[2019-03-26] MEDS: DOCUSATE SODIUM 100 MG CAPSULE PO SCH (09:24)
[2019-03-26] MEDS: CALCIUM (OYSTER SHELL) 500 MG TABLET PO SCH (09:24)
[2019-03-26] MEDS ORDERED: HYDROCHLOROTHIAZIDE 12.5 MG CAPSULE PO SCH (12:00)
[2019-03-26] MEDS ORDERED: LOSARTAN 50 MG TABLET PO SCH (12:00)
== END 2019-03-26 12:35 | disposition home or self-care (01) | DRG 483 ==
LOC: MEDSUR 08:50
PROVIDERS: ADMIT Orthopaedic Surgery; ATTEND Orthopaedic Surgery

== ENCOUNTER 2019-07-01 08:59 | Inpatient (IN) ==
[2019-06-25 17:38] LABS: Appearance,Urine CLEAR; Bacteria,Urine 0 /hpf (0); Bilirubin,Urine NEG (NEG); Color,Urine STRAW; Culture Indicated,Urine NO; Glucose,Urine (UA) NEGATIVE (NEG); Ketones,Urine NEG (NEG); Leukocyte Esterase,Urine 25 /uL (NEG); Mucus,Urine FEW /hpf (0); Nitrate,Urine NEG (NEG); Protein,Urine NEG (NEG); Specific Gravity,Urine 1.009 (1.000-1.035); Urine Blood NEG mg/dL (<0.03); Urine Hyaline Cast 4 /lpf (0-2); Urine RBC < 1 /hpf (0-1); Urine Squamous Epithelial Cell < 1 /hpf (0-4); Urine Transitional Epi Cells < 1 /hpf (0-2); Urine WBC 2 /hpf (0-4); Urobilinogen,Urine NEG (NEG)
[2019-06-25 19:03] LABS: Basophils # (Auto) 0.08 K/mcL (0.00-0.30); Eosinophils # (Auto) 0.45 K/mcL (0.00-0.70); Eosinophils % (Auto) 5.4 % (0.0-7.0); Hematocrit 39.9 % (34.1-44.9); Hemoglobin 13.3 g/dL (11.2-15.7); Lymphocytes # (Auto) 2.51 K/mcL (1.50-4.80); Lymphocytes % (Auto) 30.1 % (15.5-49.0); Mean Cell Volume 87.9 fL (80.0-100.0); Mean Corpuscular HGB Conc 33.3 g/dL (31.0-36.0); Mean Platelet Volume 9.5 fL (7.4-10.4); Monocytes # (Auto) 0.79 K/mcL (0.10-0.90); Monocytes % (Auto) 9.5 % (1.0-12.0); Platelet Count 533 K/mcL (140-440); RBC 4.54 M/mcL (3.59-5.38); Red Cell Distribution Width 15.3 % (11.5-14.5); WBC 8.4 K/mcL (4.50-11.00)
[2019-06-25 19:11] LABS: ALT/SGPT 9 U/l (0-40); AST/SGOT 27 U/l (0-37); Albumin/Globulin Ratio 1.6 (1.0-2.3); Alkaline Phosphatase 94 U/L (39-117); Bilirubin,Total 0.4 mg/dL (0.0-1.0); Blood Urea Nitrogen 34 mg/dl (8-23); Calcium 9.7 mg/dl (8.6-10.4); Carbon Dioxide 27 mmol/L (22-30); Globulin 2.5 gm/dL (2.2-3.7); Glomerular Filtration Rate 51; Glucose 100 mg/dL (70-105)
[2019-06-25 19:15] LABS: Chloride 93 mmol/L (96-108)
[2019-06-25 20:54] LABS: Estimated Average Glucose(eAG) 117 mg/dL; Hemoglobin A1C 5.7 % HGB (4.0-6.0)
[~2019-07-01 08:59] MED LIST changes: -PREGABALIN 75 MG CAPSULE PO SCH; -ceFAZolin 2 GM in DEXTROSE 5% IN WATER 50 ML IV SCH; -oxyCODONE 10 MG TAB.ER.12H PO SCH
[2019-07-01] MEDS ORDERED: oxyCODONE 10 MG TAB.ER.12H PO SCH (09:00)
[2019-07-01] MEDS ORDERED: ceFAZolin 2 GM in DEXTROSE 5% IN WATER 50 ML IV SCH (09:00)
[2019-07-01] MEDS ORDERED: PREGABALIN 75 MG CAPSULE PO SCH (09:00)
[2019-07-01] MEDS ORDERED: fentaNYL 100 MCG/2 ML VIAL IV ONE (12:35)
[2019-07-01] MEDS ORDERED: KETAMINE 100 MG/ML ML IV ONE (12:35)
[2019-07-01] MEDS ORDERED: DEXAMETHASONE 10 MG/ML VIAL IV ONE (12:35)
[2019-07-01] MEDS ORDERED: PROPOFOL 200 MG/20 ML VIAL IV ONE (12:35)
[2019-07-01] MEDS ORDERED: PHENYLEPHRINE 10 MG/ML VIAL IV ONE (12:35)
[2019-07-01] MEDS ORDERED: TRANEXAMIC ACID 1,000 MG/10 ML VIAL IV ONE ×2 (12:35→13:49)
[2019-07-01] MEDS ORDERED: ePHEDrine 50 MG/ML AMPUL IV ONE (12:35)
[2019-07-01] MEDS ORDERED: LIDOCAINE HCL/PF 100 MG/5 ML SYRINGE IV ONE (12:35)
[2019-07-01] MEDS ORDERED: ONDANSETRON 4 MG/2 ML VIAL IV ONE (12:35)
[2019-07-01] MEDS ORDERED: GLYCOPYRROLATE 0.2 MG/ML VIAL IV ONE (12:35)
[2019-07-01] MEDS ORDERED: SUCCINYLCHOLINE 20 MG/ML ML IV ONE (12:35)
[2019-07-01] MEDS: BUPIVACAINE W/EPI 0.5% 50 ML VIAL IJ ONE ×2 (13:27→13:53)
--- NOTE | 2019-07-01 13:39 | Brief Operative Note ---
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
[2019-07-01] MEDS ORDERED: MAGNESIUM HYDROXIDE 30 ML ORAL.SUSP PO PRN (13:49)
[2019-07-01] MEDS ORDERED: KETOROLAC 15 MG/ML VIAL IV PRN (13:49)
[2019-07-01] MEDS ORDERED: ONDANSETRON 4 MG/2 ML VIAL IV PRN ×2 (13:49→13:53)
[2019-07-01] MEDS ORDERED: BENZOCAINE/MENTHOL 1 LOZENGE PO PRN (13:49)
[2019-07-01] MEDS ORDERED: ACETAMINOPHEN W/CODEINE #3 1 TABLET PO PRN (13:49)
[2019-07-01] MEDS ORDERED: BISACODYL 10 MG SUPP.RECT PR PRN (13:49)
[2019-07-01] MEDS ORDERED: POLYETHYLENE GLYCOL 3350 17 GM PACKET PO PRN (13:49)
[2019-07-01] MEDS ORDERED: FLEETS ADULT ENEMA PR PRN (13:49)
[2019-07-01] MEDS ORDERED: ACETAMINOPHEN 1,000 MG/100 ML BOTTLE IV ONE (13:53)
[2019-07-01] MEDS ORDERED: MEPERIDINE 25 MG/ML SYRINGE IV PRN (13:53)
[2019-07-01] MEDS ORDERED: METHOCARBAMOL 1,000 MG/10 ML VIAL IV PRN (13:53)
[2019-07-01] MEDS ORDERED: ePHEDrine 50 MG/ML AMPUL IV PRN (13:53)
[2019-07-01] MEDS ORDERED: fentaNYL 100 MCG/2 ML VIAL IV PRN (13:53)
[2019-07-01] MEDS ORDERED: IPRATROPIUM/ALBUTEROL 3 ML AMPUL.NEB NEB PRN (13:53)
[2019-07-01] MEDS ORDERED: HYDROmorphone 2 MG/ML VIAL IV PRN ×2 (13:53→16:21)
[2019-07-01] MEDS ORDERED: ATROPINE SULFATE 0.4 MG/ML VIAL IV PRN (13:53)
[2019-07-01] MEDS ORDERED: NALOXONE HCL 0.4 MG/ML VIAL IV PRN (13:53)
[2019-07-01] MEDS ORDERED: METOPROLOL TARTRATE 5 MG/5 ML VIAL IV PRN (13:53)
[2019-07-01] MEDS ORDERED: diphenhydrAMINE 50 MG/ML VIAL IV PRN (13:53)
[2019-07-01] MEDS ORDERED: PROMETHAZINE 25 MG/ML VIAL IV PRN (13:53)
[2019-07-01] MEDS ORDERED: HALOBETASOL PROPIONATE TOPICAL PRN (13:54)
[2019-07-01] MEDS ORDERED: FLUTICASONE PROPIONATE SPRAY.NAS NS PRN (13:54)
[2019-07-01] MEDS ORDERED: CYCLOBENZAPRINE 10 MG TABLET PO PRN (13:54)
[2019-07-01] MEDS ORDERED: LACTATED RINGERS 1,000 ML IV SCH (14:00)
--- NOTE | 2019-07-01 14:37 | XRay Report ---
HISTORY: Postop left shoulder replacement FINDINGS: The previously seen reverse shoulder prosthesis has been removed and replaced with a standard prosthesis. This is well-positioned and there is no fracture. There is a cluster of small heterotopic soft tissue calcifications inferior to the joint and medial to the proximal shaft of the humerus. These were seen on the prior x-ray done on 03/25/19. There is a densely consolidating infiltrate in the left lower lung field. Moderate degenerative changes are present throughout the neck. IMPRESSION: Well-positioned left shoulder prosthesis Atelectasis or pneumonia in the lingula and left lower lobe Interpreted and Authenticated by: Royer Sloan 07/01/19
[2019-07-01] MEDS: CALCIUM (OYSTER SHELL) 500 MG TABLET PO SCH ×2 (15:12→20:43)
[2019-07-01] MEDS: 0.9 % SODIUM CHLORIDE 1,000 ML IV SCH (15:14)
[2019-07-01] MEDS: 0.9 % SODIUM CHLORIDE 10 ML SYRINGE IV SCH ×2 (15:38→22:23)
[2019-07-01] MEDS: oxyCODONE/APAP 5/325MG TABLET PO PRN (20:42)
[2019-07-01] MEDS: DOCUSATE SODIUM 100 MG CAPSULE PO SCH (20:43)
[2019-07-01] MEDS: ceFAZolin 1 GM VIAL IV SCH (20:44)
[2019-07-01] MEDS ORDERED: SENNOSIDES 1 TABLET PO SCH (21:00)
[2019-07-01] MEDS ORDERED: MAGNESIUM OXIDE 400 MG TABLET PO SCH (21:00)
[2019-07-01] MEDS ORDERED: amLODIPine 5 MG TABLET PO SCH (21:00)
[2019-07-01] MEDS ORDERED: LACTOBACILLUS 1 CAPSULE PO SCH (21:00)
[2019-07-01] MEDS: DICLOFENAC POTASSIUM 50 MG PO SCH (22:22)
[2019-07-02] MEDS: oxyCODONE/APAP 5/325MG TABLET PO PRN ×2 (02:53→10:54)
[2019-07-02] MEDS: 0.9 % SODIUM CHLORIDE 1,000 ML IV SCH (04:35)
[2019-07-02] MEDS: ceFAZolin 1 GM VIAL IV SCH (04:47)
[2019-07-02] MEDS: 0.9 % SODIUM CHLORIDE 10 ML SYRINGE IV SCH (04:48)
--- NOTE | 2019-07-02 07:33 | Operative Note ---
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 PROCEDURE PERFORMED: Revision of the left reverse total shoulder arthroplasty with conversion to a hemiarthroplasty with removal of the humeral tray and polyethylene insert with placement of a 48 x [facility], and removal of the glenosphere complex deep. SURGEON: Gigi Kirk M.D. DE ICER: Jesus Jaimes PA-C. The PA's assistance was required for the safe and efficient completion of the entire case. This provider's expertise and technical skill were required throughout the case. The PA assisted with preoperative coordination, intraoperative retraction, wound closure, dressing and splint application, as well as postoperative documentation and care coordination. ANESTHESIA: General. DRAINS: None. SPECIMENS: The removed glenosphere complex with two screws as well as humeral tray with polyethylene insert. These were discarded. BLOOD LOSS: 150 mL. COMPLICATIONS: None. POSTOPERATIVE CONDITION: Stable. INDICATIONS FOR SURGERY: This is an 84-year-old female who nearly 3 months ago had undergone a left reverse total shoulder arthroplasty. At the time of surgery, she was noted to have very poor quality bone. We were concerned about glenosphere fixation. However, we kept her immobile for 6 weeks and at her 6-week follow up her x-rays showed still good position of the implants. We then started her in physical therapy for range of motion and strengthening and when she followed back up last week she was reporting increased pain and feeling of something popping. X-rays were taken which showed the glenosphere completely dislodged from the scapula. FINDINGS AT SURGERY: The glenosphere base plate and two screws were free floating within the shoulder joint. Post implantation showed satisfactory shoulder stability. PROCEDURE IN DETAIL: The patient had been seen preoperatively and informed consent had been obtained after discussion of risks and benefits of surgery. Risks including, but not limited to, bleeding; infection; injury to nerves, blood vessels, and other surrounding structures; anesthetic risks; incomplete or no resolution of symptoms; we particularly noted she would have decrease in strength and function compared to a total shoulder; stiffness; weakness; possibility of needing further surgery. She understood and wished to proceed. Correct operative site was marked in preoperative holding and the patient was taken to the operating room and general anesthesia induced. Patient was carefully positioned in the beach chair position and pressure points were carefully padded. Left shoulder and upper extremity were then carefully prepped and draped in normal sterile fashion. A timeout was performed verifying patient name, operative site, and plan. Ioban was used to cover all skin surfaces and her previous deltopectoral incision was used. Scalpel was used through skin and subcutaneous tissue. Hemostasis was obtained with Bovie cautery. We carefully bluntly dissected trying to find the deltopectoral interval. This was difficult due to the scarring. Once down through the deltopectoral interval, we started working scar tissue free from the deltoid, and once we had the subdeltoid space developed a Rivera deltoid retractor was placed. We then palpated the anterior portion of the proximal humerus and then using a Bovie started releasing soft tissue. Once we had entered the joint, effusion was suctioned. We continued releasing around the medial inferior aspect of the proximal humerus and then we were able to dislocate out the humerus anteriorly. We then used the tuning fork to dislodge the humeral tray and polyethylene insert off of the stem. We then were able to remove the glenosphere complex with the 2 screws. We checked different humeral components ant a 48 x 20 was large enough to extend past the bone edges. This was opened and implanted and due to the fact that she had extremely poor quality bone and a well-fixed humeral stem, we did not want to remove the stem and place a stem that would allow a cuff tear arthropathy head for possible fragmenting the proximal humerus. After we irrigated with Irrisept, we irrigated copiously with pulse lavage and then the implant was impacted onto the humeral stem and a rongeur was used to round off the greater tuberosity to also try and decrease crepitance. We then closed the deltopectoral interval with a running #1 Vicryl. Final Irrisept irrigation was done 2-0 monocryl was used for subcutaneous and ronak for skin. Xeroform and sterile dressings were applied. The arm was placed in a Donjoy abductor immobilizer. The patient was awakened, extubated, and transferred to recovery in stable condition. URVASHI:florencia Job ID: [id number] Doc ID: [id number] Gigi Kirk MD [facility]
--- NOTE | 2019-07-02 07:52 | Discharge Summary ---
Providers - Providers Patient information: Note initiated : 07/02/19 at 7:49 am Service Date, if different from initiated Date: [] Patient: Itzel Rabago 84 y/o F admitted on 07/01/19 for Left Shoulder Hemiarthroplasty . Chief Complaint: [] Discharge date: 07/02/19 Hospitalization Hospital Course: Pt was admitted for a L revision TSA. Pt underwent procedure on the day of admission. Pt then transferred to the floor for IV pain meds IV abx and PT. Pt will f/u in 2 weeks with ortho. Discharge diagnosis: L shoulder pain/fx Exam - Exam Clean and dry: Yes Weight bearing status: none Ortho Discharge - TSA - Patient Instructions Diet: Regular Diet Activity: activity as tolerated Total Shoulder Protocol: Leave immobilizer in place except for bathing and ROM. Abduction pillow. Continue to wear sling until seen by physician. Codman Pendulum : These exercises use momentum produced by your body to move your shoulder joint. Bend your knees and shift your weight to your front leg, then back, allowing your arm to swing in the same directions. Using the same technique, alternately shift your weight between your right and left legs, allowing your arm to swing from side to side. These exercises are also performed in counterclockwise and clockwise circular motions. Typically these exercises are performed several times per day, for a set number repetitions or minutes, such as 20 times in a row or 5 minutes at a time. Dressing Care: May shower in 2 days - Follow Up Plan Disposition: Home, Self-Care Prognosis: Good Rehab Potential: Good Overall status at discharge: patient is progressing back to baseline - Orders For Discharge Prescriptions: oxyCODONE/APAP [Percocet 5-325 mg] 1 - 2 tab PO Q4HP PRN #75 tab PRN Reason: Per Pain Protocol Prescription Printed Pending Studies Resuscitation Status Full Code Diet Regular Diet Start SatJul 01 1352 Amlodipine Besylate (Norvasc) 5 mg PO HS [facility] Last Admin: 07/01/19 20:43 Dose: 5 mg Documented by: MARTHA Calcium Carbonate/Glycine (Oscal) 500 mg PO TID [facility] Last Admin: 07/01/19 20:43 Dose: 500 mg Documented by: Admin: 07/01/19 15:12 Dose: Not Given Documented by: FMJoseph Docusate Sodium (Colace) 100 mg PO BID [facility] Last Admin: 07/01/19 20:43 Dose: 100 mg Documented by: MARTHA Sodium Chloride (Sodium Chloride 0.9%) 1,000 mls @ 75 mls/hr IV .[id number] [facility] Last Admin: 07/02/19 04:35 Dose: 75 mls/hr Documented by: Infusion: 07/02/19 04:34 Dose: 75 mls/hr Documented by: Admin: 07/01/19 15:14 Dose: 75 mls/hr Documented by: MICAELA Ketorolac Tromethamine (Toradol) 15 mg IV Q6HP PRN; Protocol PRN Reason: Per Pain Protocol Stop: 07/03/19 13:53 Last Admin: 07/01/19 14:58 Dose: 15 mg Documented by: SAM Lactobacillus Rhamnosus (Culturelle) 1 cap PO [facility] Last Admin: 07/01/19 20:43 Dose: 1 cap Documented by: MARTHA Magnesium Oxide (Magnesium Oxide) 400 mg PO [facility] Last Admin: 07/01/19 20:43 Dose: 400 mg Documented by: MARTHA Ondansetron HCl (Zofran) 4 mg IV Q4HP PRN; Protocol PRN Reason: Nausea And Vomiting Last Admin: 07/01/19 16:43 Dose: 4 mg Documented by: MICAELA Oxycodone/Acetaminophen (Percocet 5-325 Mg) 1 - 2 tab PO Q4HP PRN; Protocol PRN Reason: Per Pain Protocol Last Admin: 07/02/19 02:53 Dose: 1 tab Documented by: Admin: 07/01/19 20:42 Dose: 1 tab Documented by: MARTHA Diclofenac Potassium ([Zipsor] 50 Mg Tab) 1 dose PO BID [facility] Last Admin: 07/01/19 22:22 Dose: Not Given Documented by: MARTHA Senna (Senokot) 2 tab PO [facility] Last Admin: 07/01/19 20:44 Dose: 2 tab Documented by: MARTHA Sodium Chloride (Saline Flush) 10 ml IV Q8 [facility] Last Admin: 07/02/19 04:48 Dose: Not Given Documented by: Admin: 07/01/19 22:23 Dose: Not Given Documented by: Admin: 07/01/19 15:38 Dose: Not Given Documented by: F Shift Summary 07/02/19 04:55 Shift Summary by Byron Diego Pt has dozed on & off this shift. Shoulder pain well managed with PO Percocet 5 (1) PO - last @ 0255. NS infusing @ 75ml/hr to her RT F/A. She has been up to the [facility] x3, and sat in her chair for a while last ludivina. Pt has voided sm amts x2. Bladder scan for 689ml @ 2220 - straight cath for 800ml @ 2250. Bladder scan @ 0445 was 189ml. 7d dressing C,D,I to Lt ant shoulder - immobilizer in place. VS -WNL on R.A. - she states chronic low temp --96.6 temporal x2 - unable to obtain oral temps. Pt is A&Ox4, calm, pleasant, & cooperative. Initialized on 07/02/19 04:55 - END OF NOTE
[2019-07-02] MEDS: DICLOFENAC POTASSIUM 50 MG PO SCH (08:54)
[2019-07-02] MEDS: CALCIUM (OYSTER SHELL) 500 MG TABLET PO SCH (08:54)
[2019-07-02] MEDS: DOCUSATE SODIUM 100 MG CAPSULE PO SCH (08:55)
[2019-07-02] MEDS ORDERED: FUROSEMIDE 40 MG TABLET PO SCH (09:00)
[2019-07-02] MEDS ORDERED: CYANOCOBALAMIN 1,000 MCG/ML VIAL IM SCH (09:00)
[2019-07-02] MEDS ORDERED: LUTEIN 10 MG PO SCH (09:00)
[2019-07-02] MEDS ORDERED: LOSARTAN 50 MG TABLET PO SCH (09:00)
[2019-07-02] MEDS ORDERED: ASPIRIN 81 MG TAB.CHEW PO SCH (09:00)
[2019-07-02] MEDS ORDERED: HYDROCHLOROTHIAZIDE 12.5 MG CAPSULE PO SCH (09:00)
[2019-07-02] MEDS ORDERED: MULTIVIT,THER IRON,CA,FA & MIN 1 TABLET PO SCH (09:00)
[2019-07-02] MEDS ORDERED: LOSARTAN/HCTZ 50/12.5 TABLET PO SCH (09:00)
== END 2019-07-02 12:52 | disposition home or self-care (01) | DRG 483 ==
LOC: MEDSUR 08:59
PROVIDERS: ADMIT Orthopaedic Surgery; ATTEND Orthopaedic Surgery